=== PATIENT | female | born 1980 | race Caucasian/White ===

== ENCOUNTER → 2024-11-28 18:04 | Outpatient (REF) | payer OTHER, SELFPAY | LOC: WDC 18:04 | PROVIDERS: ATTENDING PHYSICIAN Nurse Practitioner Family | DX: Z12.31 Encounter for screening mammogram for malignant neoplasm of breast (principal) | CPT/HCPCS: 77063; 77067 ==

== ENCOUNTER 2025-10-28 22:39 | Emergency (ER) | payer OTHER, SELFPAY ==
[2025-10-28 22:40] VITALS: BP 119/81
[2025-10-28 22:56] VITALS: BP 93/81
[2025-10-28 22:59] VITALS: BMI 39.1
[2025-10-28 23:00] VITALS: BP 97/76
--- NOTE | 2025-10-28 23:19 | ED.GENMED ---
History of Present Illness
<Suleiman Rodriguez MD, Resident - Last Filed: 10/29/25 01:18>
General
Chief Complaint: Head Injury
Source: patient
Time Seen by Provider: 10/28/25 23:06
History of Present Illness
History of Present Illness:
Bharat is a 45-year-old female with past medical history significant for ADHD, hypothyroidism, chronic constipation, seasonal allergies, eczema , Depression/anxiety, on weight loss medication who is here for evaluation after she had a fall while
putting on Magnet lights on the roof standing on a stool
Her stool slipped below her feet and she fell back and hit her head on a table and was unconscious for 2 to 3 minutes as per the family. They kept trying to wake her up and she made gurgling sounds which as per the patient she was trying to say
that she has difficulty in breathing.
After she regained her consciousness, she had headache and some back pain and she slept on and off but her symptoms did not resolve and she came to the ER.
She is not on any blood thinners and denies any ear nose or throat bleed any nausea or vomiting.
Past History
<Suleiman Rodriguez MD, Resident - Last Filed: 10/29/25 01:18>
Past History
ED Past Medical History: Hypothyroidism, Psychiatric (ADHD, Depression/anxiety) and Other (Eczema, seasonal allergies, chronic constipation)
Social History
Tobacco: Non-smoker
Alcohol: Occasional
Drug: None
Personal:
Living: with family
Review of Systems
<Suleiman Rodriguez MD, Resident - Last Filed: 10/29/25 01:18>
Review of Systems
All Other Systems: ROS reviewed and negative except as documented in HPI and ROS
Phy Exam
<Suleiman Rodriguez MD, Resident - Last Filed: 10/29/25 01:18>
General Physical Exam
General Presentation: well appearing and no apparent distress
General Skin: warm and dry
General Habitus: normal
General Mental: alert
Cardiovascular Exam
Cardiovascular Exam: regular rate/rhythm, no edema, no gallop, no murmur and normal peripheral pulses
Pulmonary Exam
Pulmonary Exam: lungs clear, no respiratory distress and other (tenderness in right thoracic region on back)
Gastrointestinal Exam
Gastrointestinal Exam: normal bowel sounds, non tender and soft
Neurological Exam
Neurological Exam: alert, oriented x3, no motor deficits, no sensory deficits, speech normal and cerebellum intact
Musculoskeletal Exam
Musculoskeletal Exam: full ROM
Skin Exam
Skin Exam: normal color and warm/dry
Psychiatric Exam
Psychiatric Exam: normal mood/affect
Course
<Suleiman Rodriguez MD, Resident - Last Filed: 10/29/25 01:18>
Orders/Labs/Results
Orders:
Orders
10/28/25 22:48
CT Head W/o Iv Contrast Urgent
Comment:
Reason For Exam: fall, head strike, + LOC
CR Chest - 2 Views Urgent
Comment:
Reason For Exam: fall, upper back pain & SOB
10/28/25 22:53
CT Cervical Spine W/o Iv Contr Urgent
Comment:
Reason For Exam: fall, head strike with LOC
10/29/25 00:06
Ibuprofen [Motrin] 600 mg PO NOW ONE
Vital Signs
Initial and Last Documented VS:
Initial Vital Signs
Temp Pulse Resp BP Pulse Ox
98.0 F 101 20 119/81 99
10/28/25 22:40 10/28/25 22:40 10/28/25 22:40 10/28/25 22:40 10/28/25 22:40
Last Documented Vital Signs
Temp Pulse Resp BP Pulse Ox
98.0 F 85 24 102/78 98
10/28/25 22:40 10/29/25 01:15 10/29/25 01:15 10/29/25 01:00 10/29/25 01:15
<Ruy Colon, DO - Last Filed: 10/29/25 01:41>
Orders/Labs/Results
Orders:
Orders
10/28/25 22:48
CT Head W/o Iv Contrast Urgent
Comment:
Reason For Exam: fall, head strike, + LOC
CR Chest - 2 Views Urgent
Comment:
Reason For Exam: fall, upper back pain & SOB
10/28/25 22:53
CT Cervical Spine W/o Iv Contr Urgent
Comment:
Reason For Exam: fall, head strike with LOC
10/29/25 00:06
Ibuprofen [Motrin] 600 mg PO NOW ONE
Vital Signs
Initial and Last Documented VS:
Initial Vital Signs
Temp Pulse Resp BP Pulse Ox
98.0 F 101 20 119/81 99
10/28/25 22:40 10/28/25 22:40 10/28/25 22:40 10/28/25 22:40 10/28/25 22:40
Last Documented Vital Signs
Temp Pulse Resp BP Pulse Ox
98.0 F 85 24 102/78 98
10/28/25 22:40 10/29/25 01:15 10/29/25 01:15 10/29/25 01:00 10/29/25 01:15
<Suleiman Rodriguez MD, Resident - Last Filed: 10/29/25 01:18>
MDM/Problems Addressed
Differential Diagnosis Includes:
Head injury
Intracranial hemorrhage
Skull fracture
Contusion
MDM/Problems Addressed:
Motrin 600mg for pain
Follow head,cervical spine ct and chest xray
<Suleiman Rodriguez MD, Resident - Last Filed: 10/29/25 01:18>
*Pulse Oximetry
SaO2: 98
Oxygen Mode of Delivery: Room air
Patient hypoxic: no
*Critical Care Note
Total Time (30-74mins, 75-104mins- exclusive of procedures): Not Applicable
<Ruy Colon DO - Last Filed: 10/29/25 01:41>
*Radiology
Radiology exam reviewed: radiology read reviewed
ED Attending Note
<Suleiman Rodriguez MD, Resident - Last Filed: 10/29/25 01:18>
-
Portions of this chart may have been created with voice recognition software.� Occasional wrong word or��sound alike� substitutions may have occurred due to the inherent limitations of voice recognition software.
<Ruy Colon DO - Last Filed: 10/29/25 01:41>
ED Attending Note
Patient seen and examined by attending physician: Yes
I performed a history and physical exam of patient and discussed management with resident, I reviewed resident's note and agree with documented findings and plan of care.: Yes
ED Attending Note:
Seen with resident examined independently slip and fall struck her head and her right posterior ribs CT report noted chest x-ray noted no obvious pneumothorax patient looks comfortable
Discharge Plan
Departure
Patient Disposition: Home (Routine Discharge)
Date of Disposition: 10/29/25
Time of Disposition: 01:39
Patient with high blood pressure during this ER visit?: No
Condition: Good
Discharge Problem:
Fall
Instructions: Concussion, Adult (DC), Minor Head Injury (DC), Contusion
Prescriptions:
New
ibuprofen 600 mg tablet
600 mg PO Q8H PRN (Reason: Pain) Qty: 20 0RF
No Action
Metamucil Packet
1 packet PO DAILY PRN (Reason: constipation)
levothyroxine 25 mcg Tablet
25 mcg PO DAILY
docusate sodium [Colace] 100 mg Capsule
100 mg PO DAILY
montelukast 10 mg Tablet
10 mg PO DAILY PRN (Reason: asthma)
albuterol sulfate [ProAir HFA] 90 mcg/actuation Hfa Aerosol Inhaler
2 puff INHALATION Q4 PRN (Reason: asthma)
methylphenidate HCl 36 mg Tablet Extended Release 24hr
36 mg PO DAILY
mometasone 0.1 % Cream
1 applic TOPICAL BID PRN (Reason: eczema)
escitalopram oxalate 20 mg Tablet
20 mg PO DAILY
biotin 1 mg Tablet
1 mg PO DAILY
Women's Daily Multivitamin 18-400 mg-mcg Tablet
1 tab PO DAILY
calcium carbonate-mag oxide 333-167 mg Tablet
1 tab PO DAILY
Wegovy 0.5 mg/0.5 mL Pen Injector
0.5 mg SC QWEEK
Referrals:
Alvina Fields CRNP [Family Provider]
Interventions
Interventions:
*Risk Screen - Suicide Last Done: 10/28/25 22:40
*General Assessment Last Done: 10/28/25 22:59
*Neglect/Abuse Screening Last Done: 10/28/25 22:40
*ED- Fall Risk Assessment Last Done: 10/28/25 22:59
*ED COVID-19 Vaccine History Last Done: 10/28/25 22:59
*ED Influenza Vaccine History Last Done: 10/28/25 22:59
ED- Neurological Assessment Last Done: 10/28/25 23:09
ED-Skin Assessment Last Done: 10/28/25 23:09
Discharge Date and Time
Print Language: SAMMARINESE
[2025-10-28 23:36] VITALS: BP 97/54
[2025-10-29] VITALS: BP 101/71
[2025-10-29] MEDS: MOTRIN 600 MG PO (00:09)
[2025-10-29 01:00] VITALS: BP 102/78
[2025-10-29 02:00] VITALS: BP 99/82
== END 2025-10-29 02:20 | disposition home or self-care (01) ==
LOC: EMR 22:39
PROVIDERS: EMERGENCY PHYSICIAN Emergency Medicine; FAMILY PHYSICIAN Nurse Practitioner Family
DX: S09.90XA Unspecified injury of head, initial encounter (principal); W01.190A Fall on same level from slipping, tripping and stumbling with subsequent striking against furniture, initial encounter; E03.9 Hypothyroidism, unspecified
CPT/HCPCS: 99284; 70450; 71046; 72125

== ENCOUNTER → 2025-11-29 13:57 | Outpatient (REF) | payer OTHER, SELFPAY | LOC: WDC 13:57 | PROVIDERS: ATTENDING PHYSICIAN Obstetrics & Gynecology; FAMILY PHYSICIAN Physician Assistant Medical | DX: Z12.31 Encounter for screening mammogram for malignant neoplasm of breast (principal) | CPT/HCPCS: 77063; 77067 ==